=== PATIENT | female | born 1975 | race African-American/Black ===

== ENCOUNTER 2018-08-03 09:19 | Emergency (ER) | payer OTHER ==
[2018-08-03 09:33] VITALS: BP 125/69; PULSE 78; TEMP 98.1; BMI 45.7
[2018-08-03] MEDS ORDERED: NAPROXEN 500 MG TABLET (FP) PO ONE (10:07)
[2018-08-03] MEDS ORDERED: NAPROXEN 500 MG TABLET (FP) ONE (10:12)
--- NOTE | 2018-08-03 10:12 | PDOC ---
History of Present Illness - General Chief Complaint: Back Pain Stated Complaint: LOWER BACK Time Seen by Provider: 08/03/18 09:46 History Source: Patient Exam Limitations: No Limitations - History of Present Illness Initial Comments: 08/03/18 10:08 Patient here with complaints of low back pain. 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 Denies numbness or tingling to feet but has shooting pains through left buttock Occurred: reports: yesterday Severity: reports: moderate Pain Location: reports: none, back Method of Injury: Yes: unknown Loss of Consciousness: no loss of consciousness Associated Symptoms (Fall): denies symptoms Past History - Travel Traveled outside of the country in the last 30 days: No Close contact w/someone who was outside of country & ill: No - Past Medical History Allergies/Adverse Reactions: Allergies Allergy/AdvReac Type Severity Reaction Status Date / Time No Known Allergies Allergy Verified 08/03/18 09:23 Home Medications: Ambulatory Orders Cyclobenzaprine HCl 10 mg PO Q8H PRN #14 tablet 08/03/18 Naproxen [Naprosyn -] 500 mg PO BID #30 tablet 08/03/18 CVA: No COPD: No CHF: No - Immunization History Immunization Up to Date: Yes - Suicide/Smoking/Psychosocial Hx Smoking History: Never smoked Hx Alcohol Use: No Drug/Substance Use Hx: No Review of Systems - Review of Systems Able to Perform ROS?: Yes Is the patient limited Tristanian proficient: Yes Constitutional: Yes: Symptoms Reported, See HPI, Malaise HEENTM: Yes: Symptoms Reported Respiratory: Yes: See HPI. No: Symptoms reported, Cough Musculoskeletal: Yes: Symptoms Reported, See HPI, Back Pain, Muscle Pain Integumentary: No: Symptoms Reported All Other Systems: Reviewed and Negative *Physical Exam - Vital Signs Last Vital Signs Temp Pulse Resp BP Pulse Ox 98.1 F 78 15 125/69 100 08/03/18 09:23 08/03/18 09:23 08/03/18 09:23 08/03/18 09:23 08/03/18 09:23 - Physical Exam General Appearance: Yes: Nourished, Appropriately Dressed, Apparent Distress, Mild Distress, Moderate Distress HEENT: positive: AZALEA, Normal ENT Inspection, TMs Normal, Pharynx Normal Neck: positive: Supple. negative: Tender Respiratory/Chest: positive: Lungs Clear Musculoskeletal: positive: Normal Inspection, Muscle Spasm (tender tight musculature to paravertebral spinous muscles low back. Has no crepitus or step- offs to spine, however range of motion is limited secondary to tension and spasm. Neurovascular intact to feet). negative: CVA Tenderness Extremity: positive: Normal Capillary Refill, Normal Inspection, Tender. 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, Fully Oriented, Alert, Normal Mood/ Affect, Normal Response, Motor Strength 08/09 Progress Note - Progress Note Progress Note: Back strain, will treat with NSAIDs and cyclobenzaprine *DC/Admit/Observation/Transfer Diagnosis at time of Disposition: Low back strain Qualifiers: Encounter type: initial encounter Qualified Code(s): S39.012A - Strain of muscle, fascia and tendon of lower back, initial encounter - Discharge Dispostion Disposition: HOME Condition at time of disposition: Stable Decision to Admit order: No - Referrals - Patient Instructions Printed Discharge Instructions: DI for Back Strain or Sprain Additional Instructions: Rest, no heavy lifting or exercise until pain is resolved Hot soaks to neck and low back as often as possible/hot showers or Jacuzzis No massage or therapy until spasm is gone Continue Naprosyn 500 mg tablet, 1 tablet every 8 hours for the next 3 days then as needed for pain and swelling Cyclobenzaprine 1-10mg every 8 hours as needed for spasm If not significant improvement within 24 hours with medication and rest regime, followup with private physician for change in medications and /or therapy. - Post Discharge Activity Forms/Work/School Notes: Back to Work
== END 2018-08-03 10:22 | disposition home or self-care (01) ==
LOC: JERFT 09:19
DX: S39.012A Strain of muscle, fascia and tendon of lower back, initial encounter (principal); X50.0XXA Overexertion from strenuous movement or load, initial encounter; X50.9XXA Other and unspecified overexertion or strenuous movements or postures, initial encounter; Y93.89 Activity, other specified; Y92.89 Other specified places as the place of occurrence of the external cause; Y99.8 Other external cause status
CPT/HCPCS: 99281-25

== ENCOUNTER 2018-10-12 07:36 | Emergency (ER) | payer OTHER ==
[2018-10-12 07:52] VITALS: BP 129/69; PULSE 74; TEMP 98.2; BMI 47.2
--- NOTE | 2018-10-12 08:22 | PDOC ---
History of Present Illness - General Chief Complaint: Back Pain Stated Complaint: BACK PAIN Time Seen by Provider: 10/12/18 08:17 History Source: Patient Exam Limitations: No Limitations - History of Present Illness Initial Comments: 10/12/18 08:22 Patient came in with acute onset of pain and burning in urine. States was on vacation and felt some frequency, with back pain . Denies changes in activity but was carrying suitcases . No fevers/ N/V/ D/ C 10/12/18 08:52 Occurred: reports: just prior to arrival Severity: reports: mild, moderate Pain Location: reports: back Method of Injury: Yes: unknown Loss of Consciousness: no loss of consciousness Associated Symptoms (Fall): denies symptoms Past History - Travel Traveled outside of the country in the last 30 days: No Close contact w/someone who was outside of country & ill: No - Past Medical History Allergies/Adverse Reactions: Allergies Allergy/AdvReac Type Severity Reaction Status Date / Time No Known Allergies Allergy Verified 10/12/18 07:52 Home Medications: Ambulatory Orders Cyclobenzaprine HCl 10 mg PO Q8H PRN #14 tablet 08/03/18 Naproxen [Naprosyn -] 500 mg PO BID #30 tablet 08/03/18 Cyclobenzaprine HCl 10 mg PO Q8H PRN #14 tablet 10/12/18 Diclofenac Sodium [Voltaren] 100 gm TP BID #1 gel..gram. 10/12/18 Naproxen [Naprosyn -] 500 mg PO BID #30 tablet 10/12/18 CVA: No COPD: No CHF: No Other medical history: prolactin problem, had benign pituitary gland tumor - Immunization History Immunization Up to Date: Yes - Suicide/Smoking/Psychosocial Hx Smoking History: Never smoked Information on smoking cessation initiated: No Hx Alcohol Use: No Drug/Substance Use Hx: No Review of Systems - Review of Systems Able to Perform ROS?: Yes Is the patient limited Guamanian proficient: Yes Constitutional: Yes: Symptoms Reported, See HPI, Fever, Malaise HEENTM: No: Symptoms Reported Respiratory: No: Symptoms reported Musculoskeletal: Yes: Symptoms Reported, See HPI, Back Pain Integumentary: Yes: Symptoms Reported All Other Systems: Reviewed and Negative *Physical Exam - Vital Signs Last Vital Signs Temp Pulse Resp BP Pulse Ox 98.2 F 74 18 129/69 100 10/12/18 07:48 10/12/18 07:48 10/12/18 07:48 10/12/18 07:48 10/12/18 07:48 - Physical Exam General Appearance: Yes: Nourished, Appropriately Dressed, Mild Distress. No: Apparent Distress HEENT: positive: AZALEA, Normal ENT Inspection, TMs Normal, Pharynx Normal Neck: positive: Supple. negative: Tender Respiratory/Chest: positive: Lungs Clear, Normal Breath Sounds Gastrointestinal/Abdominal: positive: Soft. negative: Distended, Guarding, Rebound Musculoskeletal: positive: Normal Inspection. 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, Fully Oriented, Alert, Normal Mood/ Affect, Normal Response, Motor Strength 5/5 *DC/Admit/Observation/Transfer Diagnosis at time of Disposition: Back ache - Discharge Dispostion Disposition: HOME Condition at time of disposition: Stable Decision to Admit order: No - Prescriptions Prescriptions: Cyclobenzaprine HCl 10 mg PO Q8H PRN #14 tablet PRN Reason: spasm Naproxen [Naprosyn -] 500 mg PO BID #30 tablet - Referrals - Patient Instructions Printed Discharge Instructions: DI for Back Strain or Sprain Additional Instructions: Rest, no heavy lifting or exercise until pain is resolved Hot soaks to neck and low back as often as possible/hot showers or Jacuzzis No massage or therapy until spasm is gone Continue Naprosyn 500 mg tablet, 1 tablet every 8 hours for the next 3 days then as needed for pain and swelling Cyclobenzaprine 1-10mg every 8 hours as needed for spasm If not significant improvement within 24 hours with medication and rest regime, followup with private physician for change in medications and /or therapy. - Post Discharge Activity Forms/Work/School Notes: Back to Work
[2018-10-12 08:43] LABS: URINE APPEARANCE CLEAR; URINE BILIRUBIN NEGATIVE (NEGATIVE); URINE COLOR YELLOW; URINE GLUCOSE (UA) NEGATIVE (NEGATIVE); URINE KETONE NEGATIVE (NEGATIVE); URINE LEUK ESTERASE NEGATIVE (NEGATIVE); URINE NITRITE NEGATIVE (NEGATIVE); URINE PROTEIN NEGATIVE (NEGATIVE)
[2018-10-12 08:45] LABS: HCG,QUALITATIVE URINE Negative
[2018-10-12] MEDS ORDERED: KETOROLAC TROMETHAMINE 60 MG/2 ML VIAL IM ONE (08:51)
[2018-10-12] MEDS ORDERED: KETOROLAC TROMETHAMINE 60 MG/2 ML VIAL ONE (09:02)
== END 2018-10-12 09:24 | disposition home or self-care (01) ==
LOC: JERFT 07:36 → JER 07:36 → JERFT 09:24
PROC: 3E0233Z Introduction of Anti-inflammatory into Muscle, Percutaneous Approach (ICD-10-PCS; principal; 2018-10-12)
DX: M54.89 Other dorsalgia (principal); M62.830 Muscle spasm of back
CPT/HCPCS: 81003; 84703; 87086; 99281-25